=== PATIENT | male | born 1975 | race Caucasian/White ===

== ENCOUNTER 2022-05-13 11:42 | Emergency (ER) | payer MEDICAID, OTHER ==
[~2022-05-13] VITALS: Ht 188 cm; Wt 158.8 kg
[2022-05-13 12:16] VITALS: BP 136/84
[2022-05-13] MEDS ORDERED: HYDROcodone-ACET 10/325MG TAB PO ONE (12:45)
[2022-05-13] MEDS ORDERED: HYDR-4902 PO (13:44)
[2022-05-13] MEDS ORDERED: IBUP800T26 PO (13:44)
== END 2022-05-13 13:50 | disposition home or self-care (01) ==
LOC: ER 11:42
DX: S83.91XA Sprain of unspecified site of right knee, initial encounter (principal); X50.1XXA Overexertion from prolonged static or awkward postures, initial encounter; Y93.89 Activity, other specified; Y92.89 Other specified places as the place of occurrence of the external cause; Y99.8 Other external cause status
CPT/HCPCS: 73562

== ENCOUNTER 2023-03-30 07:45 | Inpatient (IN) | payer MEDICAID ==
[~2023-03-30] VITALS: Ht 185.4 cm; Wt 163.0 kg
[~2023-03-30 07:45] MED LIST: HYDR-4902 PO; IBUP-1455 PO
[2023-03-30] MEDS ORDERED: SODIUM CHLORIDE 0.9% 4,650 ML IV ONE (08:30)
[2023-03-30] MEDS ORDERED: VANCOMYCIN 1GM/200ML 200 ML IV ONE (08:30)
[2023-03-30] MEDS ORDERED: PIPERACILLIN-TAZO 4.5GM 100 ML IV ONE (08:30)
[2023-03-30 09:18] LABS: Basophils # (auto) 0 10 ^3/uL (0-0.2); Basophils % (auto) 0.1 % (0.0-2.0); Eosinophils # (auto) 0.1 10 ^3/uL (0-0.8); Eosinophils % (auto) 0.4 % (0.0-7.0); Hematocrit 46.7 % (41.0-53.0); Hemoglobin 15.6 g/dL (13.5-17.5); Lymphocytes # (auto) 1.4 10 ^3/uL (0.4-5.4); Lymphocytes % (auto) 9.7 % (10.0-50.0); Mean Corpuscular Hemoglobin 29.9 pg (28.0-32.0); Mean Corpuscular Hgb Conc. 33.4 g/dL (32.0-36.0); Mean Corpuscular Volume 89.6 fL (80.0-100.0); Neutrophils # (auto) 11.8 10 ^3/uL (1.6-8.6); Neutrophils % (auto) 82.8 % (37.0-80.0); Nucleated Red Blood Cells % 0.2 %; Red Blood Cells 5.22 10^6/uL (4.5-5.90); Red Cell Distribution Width 12.9 % (11.8-14.3); White Blood Cell 14.2 10^3/uL (4.4-10.8)
[2023-03-30 09:23] LABS: Alanine Aminotransferase 22 U/L (7-40); Albumin 4.6 g/dL (3.2-4.8); Alkaline Phosphatase 88 U/L (46-116); Anion Gap 7 (5-15); Aspartate Aminotransferase 15 U/L (13-40); BUN/Creatinine Ratio 9.1 (10.0-20.0); Blood Urea Nitrogen 10 mg/dL (9-23); Calcium 9.3 mg/dL (8.5-10.1); Carbon Dioxide 24 mmol/L (20-30); Chloride 105 mmol/L (98-107); Glucose 190 mg/dL (74-106); Potassium 4.5 mmol/L (3.5-5.1); Sodium 136 mmol/L (136-145)
[2023-03-30 09:24] LABS: Bilirubin, Total 1.7 mg/dL (0.2-1.0); Total Protein 7.4 g/dL (5.7-8.2)
[2023-03-30 09:36] LABS: INR 1.02 (0.9-1.15); Prothrombin Time 10.7 sec (9.3-11.8)
[2023-03-30 11:12] VITALS: PULSE 100; RESP 18; O2SAT 96
[2023-03-30] MEDS ORDERED: IOHEXOL 300 MG/ML 100ML BOTTLE IJ ONE (11:55)
[2023-03-30 12:40] LABS: Urine Epithelial Cast None Seen /hpf (<5)
[2023-03-30 13:03] LABS: Urine Bacteria NONE SEEN /hpf (None Seen); Urine Blood Negative /uL (Negative); Urine Clarity Clear (Clear); Urine Color Yellow (Yellow); Urine Mucus FEW (None Seen); Urine Protein, UAD Negative (Negative); Urine Specific Gravity 1.024 (1.001-1.035); Urine Urobilinogen Normal (Negative); Urine WBC <1 /hpf (0 - 3)
[2023-03-30] MEDS ORDERED: ACETAMINOPHEN 325 MG TAB PO PRN (14:15)
[2023-03-30] MEDS ORDERED: VANCOMYCIN PER PHARMACY 0 MG IV SCH (14:15)
[2023-03-30] MEDS ORDERED: MORPHINE SULFATE INJ 2 MG/ml SYRG IV PRN (14:15)
[2023-03-30] MEDS ORDERED: ONDANSETRON HCL 4 MG/2 ML VIAL IV PRN (14:15)
[2023-03-30] MEDS ORDERED: DOCUSATE SOD 100 MG CAP PO PRN (14:15)
[2023-03-30] MEDS: SODIUM CHLORIDE 0.9% 1,000 ML IV SCH ×2 (15:11→22:46)
[2023-03-30] MEDS: VANCOMYCIN 1GM/200ML 200 ML IV SCH (17:11)
[2023-03-30] MEDS: PIPERACILLIN-TAZOB 3.375GM 100 ML IV SCH ×2 (18:22→19:14)
[2023-03-30] MEDS: HYDROcodone-ACET 5/325MG TAB PO PRN (20:24)
[2023-03-30] MEDS: ASCORBIC ACID 500 MG TAB PO SCH (20:24)
[2023-03-31] MEDS: VANCOMYCIN 1GM/200ML 200 ML IV SCH ×3 (01:58→18:03)
[2023-03-31] MEDS ORDERED: DEXTROSE (50%) 50ML SYRG IV PRN (02:30)
[2023-03-31 08:41] LABS: Chloride 107 mmol/L (98-107); Potassium 4.1 mmol/L (3.5-5.1); Sodium 137 mmol/L (136-145)
[2023-03-31 08:42] LABS: Anion Gap 6 (5-15); Carbon Dioxide 24 mmol/L (20-30)
[2023-03-31 08:43] LABS: Calcium 8.6 mg/dL (8.7-10.4)
[2023-03-31 08:47] LABS: BUN/Creatinine Ratio 11.4 (10.0-20.0); Blood Urea Nitrogen 10 mg/dL (9-23); Glucose 163 mg/dL (74-106)
[2023-03-31] MEDS ORDERED: ENOXAPARIN SOD 40 MG/0.4 ML SYRINGE SC SCH (10:00)
[2023-03-31] MEDS: PIPERACILLIN-TAZOB 3.375GM 100 ML IV SCH ×4 (10:39→19:40)
[2023-03-31] MEDS: ACCU-CHEK COMFORT CURVE STRIP VI SCH ×4 (10:40→22:44)
[2023-03-31] MEDS: InsuLIN REG 1unit/0.01ml Soln (100units/ml) SC SCH ×5 (10:40→22:00)
[2023-03-31] MEDS: ZINC SULFATE 220mg CAP or TAB PO SCH (10:57)
[2023-03-31] MEDS: ASCORBIC ACID 500 MG TAB PO SCH ×2 (10:57→22:43)
[2023-03-31] MEDS: SODIUM CHLORIDE 0.9% 1,000 ML IV SCH ×2 (10:57→15:15)
[2023-03-31 12:00] VITALS: PULSE 100; RESP 18; O2SAT 94
[2023-04-01] VITALS (7 sets, daily range): BP systolic 118–132; BP diastolic 62–77; PULSE 67–93; RESP 12–20; TEMP 97.5–98.4; O2SAT 95–99
[2023-04-01] MEDS: SODIUM CHLORIDE 0.9% 1,000 ML IV SCH ×3 (00:26→12:00)
[2023-04-01] MEDS: PIPERACILLIN-TAZOB 3.375GM 100 ML IV SCH ×4 (01:22→18:40)
[2023-04-01] MEDS: VANCOMYCIN 1GM/200ML 200 ML IV SCH ×2 (04:31→09:00)
[2023-04-01 05:02] LABS: Basophils # (auto) 0 10 ^3/uL (0-0.2); Basophils % (auto) 0.2 % (0.0-2.0); Eosinophils # (auto) 0.2 10 ^3/uL (0-0.8); Eosinophils % (auto) 2.1 % (0.0-7.0); Hematocrit 41.3 % (41.0-53.0); Hemoglobin 14.2 g/dL (13.5-17.5); Lymphocytes # (auto) 1.4 10 ^3/uL (0.4-5.4); Lymphocytes % (auto) 15.6 % (10.0-50.0); Mean Corpuscular Hemoglobin 30.6 pg (28.0-32.0); Mean Corpuscular Hgb Conc. 34.2 g/dL (32.0-36.0); Mean Corpuscular Volume 89.3 fL (80.0-100.0); Monocytes # (auto) 0.5 10 ^3/uL (0-1.3); Monocytes % (auto) 6.1 % (0.0-12.0); Neutrophils # (auto) 6.6 10 ^3/uL (1.6-8.6); Red Blood Cells 4.63 10^6/uL (4.5-5.90); Red Cell Distribution Width 12.9 % (11.8-14.3); White Blood Cell 8.7 10^3/uL (4.4-10.8)
[2023-04-01 05:10] LABS: Chloride 110 mmol/L (98-107); Potassium 3.9 mmol/L (3.5-5.1); Sodium 140 mmol/L (136-145)
[2023-04-01 05:11] LABS: Anion Gap 7 (5-15); Calcium 8.8 mg/dL (8.5-10.1); Carbon Dioxide 23 mmol/L (20-30)
[2023-04-01 05:17] LABS: BUN/Creatinine Ratio 11.4 (10.0-20.0); Blood Urea Nitrogen 8 mg/dL (9-23); Glucose 138 mg/dL (74-106)
[2023-04-01 05:18] LABS: INR 1.07 (0.9-1.15); Partial Thromboplastin Time 30.9 SEC (24.5-34.5); Prothrombin Time 11.2 sec (9.3-11.8)
[2023-04-01] MEDS: ACCU-CHEK COMFORT CURVE STRIP VI SCH ×4 (06:20→21:43)
[2023-04-01] MEDS: InsuLIN REG 1unit/0.01ml Soln (100units/ml) SC SCH ×4 (06:20→21:50)
[2023-04-01] MEDS: CELECOXIB 100 MG CAP ONE ×2 (07:58→08:00)
[2023-04-01] MEDS: ACETAMINOPHEN IV 1000 MG/100ML (10MG/ML) IV ONE ×2 (07:58→08:00)
[2023-04-01] MEDS ORDERED: LIDOCAINE W/ EPINEPHRINE 1% 20ML VIAL ONE (07:59)
[2023-04-01] MEDS ORDERED: GABAPENTIN 400 MG CAP PO ONE (08:00)
[2023-04-01] MEDS ORDERED: CELECOXIB 100 MG CAP PO ONE (08:00)
[2023-04-01] MEDS ORDERED: ACETAMINOPHEN IV 100 ML IV ONE (08:01)
[2023-04-01] MEDS ORDERED: GABAPENTIN 400 MG CAP ONE (08:01)
[2023-04-01] MEDS ORDERED: DexAMETHasone SOD PHOS 10MG/1ML VIAL INJ ONE (08:04)
[2023-04-01] MEDS ORDERED: LIDOCAINE 2% (LOCAL ANESTH.) PF 5ml SDV ONE (08:04)
[2023-04-01] MEDS ORDERED: PROPOFOL 10 MG/ML 20 ML IV ONE (08:04)
[2023-04-01] MEDS ORDERED: ONDANSETRON HCL 4 MG/2 ML VIAL ONE (08:04)
[2023-04-01] MEDS ORDERED: GLYCOPYRROLATE 0.2 MG/ML 1ML VIAL ONE (08:04)
[2023-04-01] MEDS ORDERED: KETOROLAC TROMETH 30 MG/ML 1ML VIAL ONE (08:04)
[2023-04-01] MEDS ORDERED: fentaNYL CITRATE 100 MCG/2 ML VL ONE (08:10)
[2023-04-01] MEDS ORDERED: FLUMAZENIL 0.1 MG/ML INJ 10ML MDV IV PRN (09:00)
[2023-04-01] MEDS ORDERED: ONDANSETRON HCL 4 MG/2 ML VIAL IV PRN (09:00)
[2023-04-01] MEDS ORDERED: oxyCODONE HCL 5MG TAB PO PRN (09:00)
[2023-04-01] MEDS ORDERED: ePHEDrine SULFATE 50 MG/ML AMP IV PRN (09:00)
[2023-04-01] MEDS ORDERED: LABETALOL HCL 5 MG/ML 4ML SYRINGE IV PRN (09:00)
[2023-04-01] MEDS ORDERED: hydrALAZINE HCL 20 MG/ML VL IV PRN (09:00)
[2023-04-01] MEDS ORDERED: HYDROmorphone HCL 2 MG/ML VL/or syr IV PRN (09:00)
[2023-04-01] MEDS ORDERED: fentaNYL CITRATE 100 MCG/2 ML VL IV PRN (09:00)
[2023-04-01] MEDS ORDERED: NALOXONE HCL 0.4 MG/ML VIAL IV PRN (09:00)
[2023-04-01] MEDS: ASCORBIC ACID 500 MG TAB PO SCH ×2 (10:00→21:43)
[2023-04-01] MEDS: ZINC SULFATE 220mg CAP or TAB PO SCH (10:00)
[2023-04-01] MEDS ORDERED: VANCOMYCIN 1GM/200ML 200 ML IV SCH (13:00)
[2023-04-02] MEDS: PIPERACILLIN-TAZOB 3.375GM 100 ML IV SCH ×4 (00:11→18:02)
[2023-04-02] MEDS: SODIUM CHLORIDE 0.9% 1,000 ML IV SCH ×3 (02:00→17:15)
[2023-04-02] MEDS: VANCOMYCIN 1GM/200ML 200 ML IV SCH ×3 (04:25→21:08)
[2023-04-02 05:00] VITALS: BP 108/72; PULSE 75; RESP 18; TEMP 98.2; O2SAT 95
[2023-04-02] MEDS: ACCU-CHEK COMFORT CURVE STRIP VI SCH ×4 (06:18→21:17)
[2023-04-02] MEDS: InsuLIN REG 1unit/0.01ml Soln (100units/ml) SC SCH ×4 (06:30→21:20)
[2023-04-02 08:00] VITALS: BP 106/53; PULSE 63; RESP 20; TEMP 98.1; O2SAT 96
[2023-04-02] MEDS: HYDROcodone-ACET 5/325MG TAB PO PRN ×2 (09:55→17:13)
[2023-04-02] MEDS: ASCORBIC ACID 500 MG TAB PO SCH ×2 (09:55→21:16)
[2023-04-02] MEDS: ZINC SULFATE 220mg CAP or TAB PO SCH (09:56)
[2023-04-02 12:00] VITALS: BP 111/71; PULSE 68; RESP 18; TEMP 97.7; O2SAT 97
[2023-04-02 16:00] VITALS: BP 140/80; PULSE 72; RESP 18; TEMP 98.1; O2SAT 93
[2023-04-02 20:00] VITALS: BP 113/73; PULSE 74; RESP 19; TEMP 97.5; O2SAT 97
[2023-04-02] MEDS: AMPICILLIN & SULBACTAM SODIUM 3 GM in SODIUM CHL 0.9% 100 ML IV SCH (21:05)
[2023-04-02 22:00] VITALS: BP 113/73; PULSE 74; RESP 19; TEMP 97.5; O2SAT 97
[2023-04-03] MEDS: AMPICILLIN & SULBACTAM SODIUM 3 GM in SODIUM CHL 0.9% 100 ML IV SCH ×5 (00:45→23:43)
[2023-04-03] MEDS: SODIUM CHLORIDE 0.9% 1,000 ML IV SCH ×3 (01:35→18:32)
[2023-04-03] MEDS: VANCOMYCIN 1GM/200ML 200 ML IV SCH ×3 (03:54→20:49)
[2023-04-03 05:00] VITALS: BP 110/74; PULSE 64; RESP 19; TEMP 97.5; O2SAT 96
[2023-04-03] MEDS: ACCU-CHEK COMFORT CURVE STRIP VI SCH ×4 (06:22→21:13)
[2023-04-03] MEDS: InsuLIN REG 1unit/0.01ml Soln (100units/ml) SC SCH ×4 (06:22→21:25)
[2023-04-03 09:00] VITALS: BP 124/85; PULSE 72; RESP 19; TEMP 97.6; O2SAT 93
[2023-04-03] MEDS: HYDROcodone-ACET 5/325MG TAB PO PRN ×3 (09:33→21:16)
[2023-04-03] MEDS: ASCORBIC ACID 500 MG TAB PO SCH ×2 (09:33→21:13)
[2023-04-03] MEDS: ZINC SULFATE 220mg CAP or TAB PO SCH (09:33)
[2023-04-03 13:00] VITALS: BP 113/84; PULSE 65; RESP 19; TEMP 97.8; O2SAT 93
[2023-04-03 17:00] VITALS: BP 121/86; PULSE 55; RESP 19; TEMP 97.9; O2SAT 96
[2023-04-03 20:00] VITALS: BP 121/71; PULSE 66; RESP 19; RESP 20; TEMP 97.6; O2SAT 97
[2023-04-03 22:00] VITALS: BP 121/71; PULSE 66; RESP 20; TEMP 97.6; O2SAT 97
[2023-04-04] MEDS: SODIUM CHLORIDE 0.9% 1,000 ML IV SCH ×2 (02:35→09:10)
[2023-04-04] MEDS: VANCOMYCIN 1GM/200ML 200 ML IV SCH ×2 (03:53→12:07)
[2023-04-04 05:00] VITALS: BP 117/62; PULSE 69; RESP 18; TEMP 97.8; O2SAT 95
[2023-04-04] MEDS: AMPICILLIN & SULBACTAM SODIUM 3 GM in SODIUM CHL 0.9% 100 ML IV SCH ×2 (06:07→14:01)
[2023-04-04] MEDS: ACCU-CHEK COMFORT CURVE STRIP VI SCH ×3 (06:07→17:39)
[2023-04-04] MEDS: InsuLIN REG 1unit/0.01ml Soln (100units/ml) SC SCH ×3 (06:12→17:39)
[2023-04-04 08:00] VITALS: BP 109/65; PULSE 73; RESP 19; TEMP 97.5; O2SAT 91
[2023-04-04 08:25] VITALS: BP 109/65; PULSE 73; RESP 19; TEMP 97.5; O2SAT 97
[2023-04-04] MEDS: HYDROcodone-ACET 5/325MG TAB PO PRN (09:05)
[2023-04-04] MEDS: ZINC SULFATE 220mg CAP or TAB PO SCH (09:05)
[2023-04-04] MEDS: ASCORBIC ACID 500 MG TAB PO SCH (09:05)
[2023-04-04 12:20] VITALS: BP 126/83; PULSE 67; RESP 18; TEMP 97.9; O2SAT 97
[2023-04-04] MEDS ORDERED: METR-344 PO (14:15)
[2023-04-04] MEDS ORDERED: BACDST PO (14:15)
[2023-04-04] MEDS ORDERED: METF-370 PO (14:15)
[2023-04-04 16:13] VITALS: BP 126/83; PULSE 67; RESP 18; TEMP 97.9; O2SAT 97
[2023-04-04 16:25] VITALS: BP 145/88; PULSE 72; RESP 19; TEMP 97.6; O2SAT 96
== END 2023-04-04 18:00 | disposition home health service (06) | DRG 223 ==
LOC: ER 07:45 → OVERFLOW 14:15 → EAST 04-01 12:08
PROVIDERS: ADMIT Internal Medicine; ATTEND Internal Medicine
PROC: 0D9P00Z Drainage of Rectum with Drainage Device, Open Approach (ICD-10-PCS; principal; 2023-04-01 08:03)
DX: K61.1 Rectal abscess (principal); D72.829 Elevated white blood cell count, unspecified; L02.31 Cutaneous abscess of buttock; E11.65 Type 2 diabetes mellitus with hyperglycemia; E66.01 Morbid (severe) obesity due to excess calories; B95.62 Methicillin resistant Staphylococcus aureus infection as the cause of diseases classified elsewhere; F17.210 Nicotine dependence, cigarettes, uncomplicated; Z68.42 Body mass index [BMI] 45.0-49.9, adult; L03.317 Cellulitis of buttock; K57.90 Diverticulosis of intestine, part unspecified, without perforation or abscess without bleeding; Z86.14 Personal history of Methicillin resistant Staphylococcus aureus infection
CPT/HCPCS: 36415; 74176; 74177; 80048; 80053; 80202; 81001; 82565; 82962; 83036; 83605; 85025; 85610; 85730; 87040; 87075; 87076; 87077; 87186; 87205; 93005; 96365; 96368; 99291; G0378; J0131; J1100; J1815; J1885; J2001; J2405; J2543; J2704